=== PATIENT | female | born 1990 | race Caucasian/White ===

== ENCOUNTER 2020-03-05 11:44 | Outpatient (CLI) | payer BC, SELFPAY ==
[2020-03-05 12:22] LABS: Hematocrit 37.5 % (37.0-47.0); Hemoglobin 12.6 g/dL (12.0-15.0); Mean Corpuscular HGB Conc 33.6 g/dl (32-36); Mean Corpuscular Volume 89.3 fl (80-100); Mean Platelet Volume 10.3 fl (7.4-10.4); Platelet Count Result 206 k/mm3 (150-375); Red Cell Distribution Width 13.9 % (11.5-14.5); White Blood Count 10.4 K/mm3 (4.5-10.0)
[2020-03-07 13:03] LABS: Rapid Plasma Reagin Non-Reactive (NonReactive)
== END 2020-03-05 11:45 | disposition home or self-care (01) ==
PROVIDERS: PCP Family Medicine; Visit Provider Obstetrics & Gynecology Gynecology
DX: Z34.93 Encounter for supervision of normal pregnancy, unspecified, third trimester (principal); Z3A.00 Weeks of gestation of pregnancy not specified
CPT/HCPCS: 36415; 85027; 86592; 86850; 86900; 86901

== ENCOUNTER 2020-03-07 07:05 | Inpatient (IN) | payer BC, SELFPAY ==
[2020-03-07] VITALS (68 sets, daily range): BP systolic 92–127; BP diastolic 47–89; PULSE 50–98; RESP 10–18; TEMP 36.4–36.7; O2SAT 91–100; BMI 35.5
--- NOTE | 2020-03-07 07:23 | PM.IMHP ---
H&P: HPI History of Present Illness Date/Time: 03/07/20 07:23 Chief Complaint: scheduled csection Narrative: Shannan Pascual is a 30 year old female A1 at 39 2/7 wks here for repeat LTCS. Patient has been uncomplicated. labs: O+; RPR-; HBSAg -; HIV -; Rubella immune; GBS -. [facility] Past Medical History Medical History (Updated 03/07/20 @ 07:26 by Blanka Knight MD) Anxiety Surgical History Surgical History (Updated 03/07/20 @ 07:26 by Blanka Knight MD) History of S/P D&C (status post dilation and curettage) 2019 for SAb Family History Family History (Updated 02/11/20 @ 16:11 by Lilliana England RN) Grandparent Diabetes mellitus Mother Follicular lymphoma Other Family history of lung cancer Family history of malignant neoplasm of ovary Social History Social History Smoking status: Never smoker Alcohol intake: never Substance use: never Gender identity (if verbalized by the patient): Female Spiritual care concerns: No Meds Home Medications and Allergies Home Medications Medication Instructions Recorded Confirmed Type PNV cmb#95-ferrous fumarate-FA 1 tablet PO DAILY 02/11/20 02/11/20 History [] cholecalciferol (vitamin D3) 50 mcg PO DAILY 02/11/20 02/11/20 History [Vitamin D3] ferrous sulfate [Iron (ferrous 325 mg PO DAILY 02/11/20 02/11/20 History sulfate)] Allergies Allergy/AdvReac Type Severity Reaction Status Date / Time No Known Allergies Allergy Verified 09/03/19 08:06 Vital Signs Vital Signs - 24 hr 03/07/20 07:22 Pulse Rate 92 Blood Pressure 125/80 Exam Const: General: healthy appearing and comfortable Resp: Auscultation: clear to auscultation bilaterally Cardio: Rate: regular rate Rhythm: regular rhythm GI: GI Palp: Yes Other GI palpation findings present (gravid with FH 40 cm) : Speculum Exam - Cervix: Cervical os closed Assessment and Plan Assessment and plan (1) 39 weeks gestation of : Code(s): Z3A.39 - 39 weeks gestation of Status: Acute (2) History of : Code(s): Z98.891 - History of uterine scar from previous surgery Status: Inactive Assessment and Plan: declines trial of labor plan repeat csection
[2020-03-07] MEDS: LACTATED RINGERS 1,000 ML 125 ML IV CONT (07:37)
--- NOTE | 2020-03-07 08:06 | WPDANESEPPF ---
Anes - Initial Pre Proc Eval Procedure: Operation Date: 03/07/20 09:00 Proposed Procedures p Repeat Section - Blanka Knight MD Date/Time: 03/07/20 08:06 Surgeon: Blanka Knight MD Pre Op Diagnosis: Repeat C Section Patient Data Age: 30 Gender: F Height: 1.63 m Weight: 94 kg Last Vital Signs Pulse 92 03/07/20 07:22 BP 125/80 03/07/20 07:22 Allergies Allergy/AdvReac Type Severity Reaction Status Date / Time No Known Allergies Allergy Verified 09/03/19 08:06 Home Medications Medication Instructions Recorded Confirmed Type PNV cmb#95-ferrous fumarate-FA 1 tablet PO DAILY 02/11/20 02/11/20 History [] cholecalciferol (vitamin D3) 50 mcg PO DAILY 02/11/20 02/11/20 History [Vitamin D3] ferrous sulfate [Iron (ferrous 325 mg PO DAILY 02/11/20 02/11/20 History sulfate)] Patient hx anesthesia problems: none Family hx anesthesia problems: none PMFSH Past Medical History Medical History (Updated 03/07/20 @ 07:26 by Blanka Knight MD) Anxiety Surgical History Surgical History (Updated 03/07/20 @ 07:26 by Blanka Knight MD) History of S/P D&C (status post dilation and curettage) 2019 for SAb Family History Family History (Updated 02/11/20 @ 16:11 by Lilliana England RN) Grandparent Diabetes mellitus Mother Follicular lymphoma Other Family history of lung cancer Family history of malignant neoplasm of ovary Social History Social History Smoking status: Never smoker Alcohol intake: never Substance use: never Gender identity (if verbalized by the patient): Female Spiritual care concerns: No Anes - Eval Final PreProcedure Day of Procedure 03/07/20 08:06 Patient weight: obese Heart: regular rate and rhythm Lungs: clear to auscultation and normal air movement Airway: Mallampati scale class II Neurological: alert and oriented Last oral intake: >/= 8 hours ASA classification: II Emergent: no Anesthetic plan: proceed Anesthesia type and monitoring: regional spinal and standard monitoring Informed Consent: The patient's anesthetic plan and its attendant risks and benefits were discussed with the patient/family/POA. Questions were solicited and answers provided to the satisfaction of the patient/family/POA.
--- NOTE | 2020-03-07 10:16 | PM.PROC ---
Procedure Note - Detailed Date of procedure: 03/07/20 Pre-op diagnosis: Repeat C Section IUP 39 2/7 wk Post-op diagnosis: same Procedure performed: repeat LTCS Description of procedure: The patient was taken to the operating room and placed in the dorsal supine position with a leftward tilt. She was prepped and draped in the usual sterile fashion. Once anesthesia was deemed adequate a Pfannenstiel skin incision was made with a scalpel and carried down to underlying layer of fascia. Fascia was nicked in the midline. Fascial incision was extended laterally using Hernandez scissors. The edges of the fascia were grasped with Ochsner and tented and the fascia dissected off anteriorly and posteriorly using sharp dissection. Rectus muscles are in the midline. The peritoneum was tented with a peon and entered with Metzenbaum scissors. The bladder blade is placed. The bladder flap is noted to be below the lower uterine segment. The lower uterine segment is therefore incised with a scalpel and carried down to the under lying amniotic cavity. Membranes are ruptured with a pickup. Clear fluid is noted. The uterine incision is extended laterally using blunt traction. The 's head is brought up into the incision and delivered while the printer floor covering assistant applied fundal pressure. Nuchal cord x1 is reduced. The remainder of the infant was fully delivered. The cord is clamped and cut and infant handed to the waiting nursery nurse. The placenta is removed using manual traction. The uterus is cleared of all clots and debris. The uterus is exteriorized. The uterine incision is closed using 0 Monocryl in a running locked fashion and the same is used to imbricate. Good hemostasis is noted. The cul-de-sac is irrigated and the uterus returned to the abdomen. Gutters are irrigated. Incision was again inspected and noted to be hemostatic. The fascia is closed using 0 Vicryl in a running fashion. Subcutaneous tissues are irrigated and made hemostatic using Bovie cautery. Skin incision was closed using 4 0 Vicryl in a subcuticular fashion. Incision is covered with derma whitehead. Sponge, instrument, and needle counts are correct per the OR staff. Patient received antibiotics prior to skin incision. Anesthesia: spinal Surgeon: Blanka Knight MD Estimated blood loss (mL): 310 Drains: Yes (serrato) Packing: No Pathology: none sent Complications: No immediate complications Condition: stable Disposition: floor Findings: male 9#13oz nuchal cord x 1; 8/9; normal appearing tubes, ovaries, and uterus
--- NOTE | 2020-03-07 10:21 | PM.OBDSVD ---
DS: Admitting Diagnosis Admitting Diagnosis Admitting Diagnosis: IUP 39 2/7 wks previous LTCS DS: Discharge Diagnosis Discharge Diagnosis (1) delivery delivered: Code(s): O82 - Encounter for delivery without indication Status: Acute (2) 39 weeks gestation of : Code(s): Z3A.39 - 39 weeks gestation of Status: Acute (3) History of : Code(s): Z98.891 - History of uterine scar from previous surgery Status: Acute (4) Post-op bleeding: Status: Acute OB - DS: Summary OB Procedures : Ultrasound OB Procedures Intrapartum: low cervical, transverse OB Procedures: : None Peripartum Data Infant Delivery Method: Section Procedures: Procedures Operation Date: 03/07/20 09:00 <No data on this case meets the specified criteria> complications: hematoma, transfusion and other (return to OR for bleeding on Post op day 2) Status at Discharge Functional status at discharge: independent ambulation Overall status at discharge: patient is progressing back to baseline Time Spent with Patient Time attestation: Total time spent providing and/or coordinating discharge services: Discharge Plan Discharge Attending physician on discharge: Blanka Knight Discharging Clinician: Blanka Knight Anticipated Discharge Date/Time: 03/11/20 10:22 Patient Disposition: Home, Self-Care Activity: may shower, may drive after 2 weeks and pelvic rest Diet: regular Wound Care Instructions: incision open to air Discharge Instructions: Education: Mom and Baby Guide Given to: Mother Follow-Up: Call your delivering provider's office for an appointment to be seen in: 1 Week Mom and baby should come to the [facility] for the follow-up appointment. Appointment Date/Time: March 14, 2020 at 11:00 am What to expect at your follow-up visit: Physical Assessment Call [phone] if you are unable to keep your appointment time. BREAST CARE: * Wear a snug supportive bra. * For engorgement discomfort: Breast Feeding: * Apply warm moist washcloths * Express milk as needed to relieve engorgement * Wear loose clothing * For sore nipples: * Identify correct latch-on * Apply warm moist washcloths before and after nursing * Air dry nipples after nursing * May apply Lansinoh cream to nipples ABDOMINAL INCISION: * Allow incision to air dry * Do NOT use lotions for powders on your incision * When showering, allow soap and water to run over the incision, but do not wash incision PERINEAL CARE: * Until bleeding stops, use your hung bottle after urinating * Change your pad frequently throughout the day * You may take sitz baths several times a day (fill your bathtub with warm water and soak for 20 minutes.) Do NOT bathe in the water * No tub baths until seen by your physician - You may shower ACTIVITY: * Rest as much as possible. * Do not exercise or lift anything heavier than your baby (such as laundry or other children.) * Avoid stairs or driving as much as possible. * Do not put anything into the vagina. No douching, tampons, or sexual activity until seen by physician. NOTIFY PHYSICIAN IF YOU HAVE ANY QUESTIONS OR IF ANY OF THE FOLLOWING SYMPTOMS OCCUR: * If your incision becomes red, swollen, or more painful than what you have experienced in the hospital. * If your vaginal bleeding becomes foul smelling. * If your vaginal bleeding becomes more heavy than a period or if your bleeding changes from pink to bright red. However, you may pass an occasional walnut-sized clot once or twice for the first week . * If you experience a sharp, shooting pain in you calves. * If you discover a hard, reddened area on your breast or if you experience flu-like symptoms. DIET: * Eat regular, well-balanced meals. * Drink plenty of flu
[2020-03-07] MEDS: KETOROLAC 30 MG/ML VIAL (*BKC) IV PUSH (13:25)
--- NOTE | 2020-03-07 14:21 | PC.NURSE ---
3418 note; mother had infant at the breast when nurse came to bedside; baby initially fussy, then able to latch with nipple shield.Latch appeared appropriate, and mother reported comfortable breast feeding; baby had strong suck requiring some stimulation, and sucking improved as baby was getting more through the nipple shield. Mother reported seeing colostrum in the shield when she changed sides. Reviewed q2-3h and on demand feedings and reviewed how to assess for effective breast feeding, baby latched and nursing vigorously. mother reports hx of abundant milk production, pumping and bottle feeding because baby was using the nipple shield, and mother was not sure of her volume. She did have excellent milk production, giving stored milk for several months, and donating breast milk as well. Nurse encouraged mother to start pumping after each breast feeding after the third feeding with the nipple shield, and doing so until her milk was in, and then adjusting her pumping frequency as needed. Mother seemed attentive, yet hesitant to start pumping.
--- NOTE | 2020-03-07 14:48 | PC.NURSE ---
1430 note; Mother reports seeing milk in nipple shield, and hearing baby swallow with milk around his mouth. Nurse discussed again recommendation to start pumping after feedings, even 5-10 minutes, after baby's third feeding. Mother stated she is not comfortable starting pumping yet, and will not. Pump supplies left in her room. Pt reports having a Spectra pump at home with new attachments.
--- NOTE | 2020-03-07 15:13 | PC.NURSE ---
Patient transferred to post room #290 via stretcher. Support person present. Oriented to unit, room, information board, rooming in, admission packet and security measures. Patient verbalizes understanding.
[2020-03-07] MEDS: HYDROcodone/acetaminophen (*CRX) 5-325 MG TABLET 1 TAB PO ×2 (16:36→22:50)
[2020-03-07] MEDS: DEXTROSE 5%/0.45% SOD CHL 1,000 ML 125 ML IV CONT ×2 (16:37→22:47)
[2020-03-07] MEDS: DOCUSATE SODIUM 100 MG CAPSULE PO (16:37)
[2020-03-07] MEDS: ONDANSETRON INJ 4 MG/2 ML VIAL IV PUSH (16:42)
[2020-03-07] MEDS: IBUPROFEN 600 MG TABLET PO (20:45)
[2020-03-07] MEDS: SODIUM CHLORIDE 0.9% IV 500 ML IV CONT (21:43)
[2020-03-08] VITALS: BP 103/56; PULSE 98; RESP 16; TEMP 36.8; O2SAT 99
[2020-03-08] MEDS: IBUPROFEN 600 MG TABLET PO ×2 (03:52→13:46)
[2020-03-08 04:00] VITALS: BP 111/63; PULSE 88; RESP 16; TEMP 36.9; O2SAT 100
[2020-03-08 05:32] LABS: Basophils Percent Auto 0.2 % (0.2-1.2); Eosinophils Percent Auto 0.3 % (0-4.4); Hematocrit 21.5 % (37.0-47.0); Immature Granulocyte Absolute 0.09 K/mm3 (0.00-0.031); Immature Granulocyte Percent A 0.6 % (0-0.5); Lymphocytes Absolute Auto 1.66 K/mm3 (0.9-3.2); Lymphocytes Percent Auto 11.5 % (18.3-44.2); Mean Corpuscular HGB Conc 32.6 g/dl (32-36); Mean Corpuscular Hemoglobin 29.5 pg (26-34); Mean Corpuscular Volume 90.7 fl (80-100); Mean Platelet Volume 10.7 fl (7.4-10.4); Monocytes Absolute Auto 0.9 K/mm3 (0.1-0.6); Monocytes Percent Auto 6.4 % (2.6-8.5); Neutrophils Absolute Auto 11.6 K/mm3 (1.3-6.7); Platelet Count Result 187 k/mm3 (150-375); Red Blood Count 2.37 M/mm3 (4.2-5.4); Red Cell Distribution Width 14.2 % (11.5-14.5); White Blood Count 14.4 K/mm3 (4.5-10.0)
--- NOTE | 2020-03-08 07:51 | WPDANLDNPN2 ---
Anes-Prog Note L&D-Neuraxial Date/Time: 03/08/20 07:51 Neuraxial medications: intrathecal PF morphine Opiod-related complaints: none Patient feedback: Patient satisfied with post-operative pain management.
--- NOTE | 2020-03-08 07:51 | WPDANLDPN2 ---
Anes-Prog Note L&D Date/Time: 03/08/20 07:51 Comfortable throughout: section Neuraxial method: spinal Epidural/Spinal procedure site: clean & non-tender Neuro status: Neuro function grossly intact. Cardiovascular status: normal Respiratory status: normal Airway patency: baseline Mental status: baseline Post-Op hydration status: normal Vital Signs: Last Vital Signs Temp 36.9 C 03/08/20 04:00 Pulse 88 03/08/20 04:00 Resp 16 03/08/20 04:00 BP 111/63 03/08/20 04:00 Pulse Ox 100 03/08/20 04:00 Pain score (VAS): no complaints I/O: Intake & Output 03/07/20 03/07/20 03/08/20 15:59 23:59 07:59 Intake Total 2300 1500 Output Total 023 993 1823 Balance -410 1725 -800 Post-procedural complaints: none Patient feedback: Patient satisfied with anesthetic care.
--- NOTE | 2020-03-08 07:52 | P.PNOB_ITS ---
OB - PN: Subj Subjective Date/time seen: 03/08/20 07:52 Patient comments: pain well controlled and other (feeling much better this am) baby status: doing well OB - PN: Obj Data Labs CBC & Chem 7: 03/08/20 05:23 Labs: Laboratory Results - last 24 hr 03/08/20 05:23 WBC 14.4 H RBC 2.37 L Hgb 7.0 L D Hct 21.5 L MCV 90.7 MCH 29.5 MCHC 32.6 RDW 14.2 Plt Count 187 MPV 10.7 H Immature Gran % (Auto) 0.6 H Neut % (Auto) 81.0 H Lymph % (Auto) 11.5 L Prentiss % (Auto) 6.4 Eos % (Auto) 0.3 Baso % (Auto) 0.2 Lymph # (Auto) 1.66 Prentiss # (Auto) 0.9 H Eos # (Auto) 0.0 Baso # (Auto) 0.0 Abs Immat Gran (auto) 0.09 H Absolute Neuts (auto) 11.6 H Absolute Nucleated RBC 0.0 Nucleated RBC % 0.0 OB - PN A/P Plan day: 1 Comments: Had issues with catheter and fundus to patient right. Initially thought due to full bladder. Once catheter replaced, no sig urine output. Suspected bleeding however patient stable vital signs with no pulses >100 and BP stable throughout day and night. Lower limit of urine output and 2 500 cc bolus given with resulting 2200 cc out overnight. Suspect bleeding has stopped. Will keep in catheter and recheck H/H at noon. Continue close observation. Time Spent With Patient Time: Total time spent is greater than 50% in coordination of care (as documented) at patient's floor/unit and/or counseling patient: Exam Narrative: Exam Narrative: fundus firm, appropriate tenderness, to patient right inc c/d/i
[2020-03-08 08:45] VITALS: BP 119/61; PULSE 96; RESP 18; TEMP 37.3; O2SAT 98
[2020-03-08] MEDS: MULTIVIT/MIN/PREN/FOL AC/IRON TABLET 1 TAB PO (08:45)
[2020-03-08] MEDS: POLYSACCHARIDE IRON COMPLEX 150 MG CAPSULE PO ×2 (08:45→17:26)
[2020-03-08] MEDS: DOCUSATE SODIUM 100 MG CAPSULE PO ×2 (08:45→17:26)
[2020-03-08] MEDS: HYDROcodone/acetaminophen (*CRX) 5-325 MG TABLET 1 TAB PO ×3 (08:46→20:00)
[2020-03-08 12:00] VITALS: BP 115/62; PULSE 94; RESP 18; TEMP 37; O2SAT 100
[2020-03-08 12:56] LABS: Hematocrit 20.6 % (37.0-47.0)
[2020-03-08 16:00] VITALS: BP 116/57; PULSE 90; RESP 18; TEMP 36.9; O2SAT 99
[2020-03-08 20:00] VITALS: BP 117/69; PULSE 98; RESP 16; TEMP 37.2; O2SAT 99
[2020-03-09] VITALS (16 sets, daily range): BP systolic 110–128; BP diastolic 54–74; PULSE 71–122; RESP 16–20; TEMP 36.5–37.9; O2SAT 94–100
[2020-03-09] MEDS: HYDROcodone/acetaminophen (*CRX) 5-325 MG TABLET 1 TAB PO ×4 (05:07→23:56)
[2020-03-09 05:22] LABS: Hemoglobin 5.9 g/dL (12.0-15.0)
[2020-03-09 05:23] LABS: Hematocrit 18.2 % (37.0-47.0)
--- NOTE | 2020-03-09 06:05 | WPDANESEPP ---
Anes - Eval Pre Procedure Procedure: Exploratory laparoscopy Date/Time: 03/09/20 06:05 Surgeon: iveth Preop Diagnosis: post c section bleeding Pre Op Diagnosis: Repeat C Section Patient Data Age: 30 Gender: F Height: 1.63 m Weight: 94 kg Last Vital Signs Temp 36.8 C 03/09/20 00:00 Pulse 96 03/09/20 05:00 Resp 16 03/09/20 00:00 BP 122/63 03/09/20 05:00 Pulse Ox 100 03/09/20 05:00 Allergies Allergy/AdvReac Type Severity Reaction Status Date / Time No Known Allergies Allergy Verified 09/03/19 08:06 Home Medications Medication Instructions Recorded Confirmed Type PNV cmb#95-ferrous fumarate-FA 1 tablet PO DAILY 02/11/20 02/11/20 History [] cholecalciferol (vitamin D3) 50 mcg PO DAILY 02/11/20 02/11/20 History [Vitamin D3] ferrous sulfate [Iron (ferrous 325 mg PO DAILY 02/11/20 02/11/20 History sulfate)] Laboratory Tests 03/08/20 03/09/20 12:45 05:03 Hgb 7.0 g/dL L g/dL 5.9 g/dL L* g/dL (12.0-15.0) (12.0-15.0) Hct 20.6 % L* % 18.2 % L* % (37.0-47.0) (37.0-47.0) Patient hx anesthesia problems: none Family hx anesthesia problems: none [facility] Past Medical History Medical History (Updated 03/07/20 @ 10:22 by Blanka Knight MD) Anxiety Surgical History Surgical History (Updated 03/07/20 @ 10:22 by Blanka Knight MD) History of S/P D&C (status post dilation and curettage) 2019 for SAb Family History Family History (Updated 02/11/20 @ 16:11 by Lilliana England RN) Grandparent Diabetes mellitus Mother Follicular lymphoma Other Family history of lung cancer Family history of malignant neoplasm of ovary Social History Social History Smoking status: Never smoker Alcohol intake: never Substance use: never Gender identity (if verbalized by the patient): Female Spiritual care concerns: No Exam Day of Procedure 03/09/20 06:05
--- NOTE | 2020-03-09 06:23 | P.PNOB_ITS ---
OB - PN: Subj Subjective Date/time seen: 03/09/20 06:23 Patient comments: no complaints, pain well controlled and other (ambulating without dizziness) [place] baby status: doing well Narrative: Patient states feels good OB - PN: Obj Data Labs CBC & Chem 7: 03/09/20 05:03 Labs: Laboratory Results - last 24 hr 03/08/20 03/09/20 12:45 05:03 Hgb 7.0 L 5.9 L* Hct 20.6 L* 18.2 L* OB - PN A/P Assessment and Plan (1) Post-op bleeding: Status: Acute Assessment and Plan: Patient stable vitals but H/H dropped from 7 to 5.9. Discussed options with couple. Recommend 2 units PRBC and return to OR to evacuate blood and evaluate for possible continued internal bleeding. Reviewed additional recovery in hospital and risks of surgery. Patient agrees. Proceed with emergent exploratory laparotomy when OR team ready. (2) delivery delivered: Code(s): O82 - Encounter for delivery without indication Status: Acute Plan day: 2 Time Spent With Patient Time: Total time spent is greater than 50% in coordination of care (as documented) at patient's floor/unit and/or counseling patient: Exam Narrative: Exam Narrative: fundus firm,nt, to Right side inc c/d/i
--- NOTE | 2020-03-09 06:44 | WPDANESEPPF ---
Anes - Initial Pre Proc Eval Procedure: Operation Date: 03/07/20 09:00 Proposed Procedures p Repeat Section - Blanka Knight MD Operation Date: 03/09/20 07:00 Proposed Procedures p EXPLORATORY LAPAROTOMY - Blanka Knight MD Date/Time: 03/09/20 06:44 Surgeon: Blanka Knight MD Pre Op Diagnosis: Repeat C Section Patient Data Age: 30 Gender: F Height: 1.63 m Weight: 94 kg Last Vital Signs Temp 36.8 C 03/09/20 00:00 Pulse 96 03/09/20 05:00 Resp 16 03/09/20 00:00 BP 122/63 03/09/20 05:00 Pulse Ox 100 03/09/20 05:00 Allergies Allergy/AdvReac Type Severity Reaction Status Date / Time No Known Allergies Allergy Verified 09/03/19 08:06 Home Medications Medication Instructions Recorded Confirmed Type PNV cmb#95-ferrous fumarate-FA 1 tablet PO DAILY 02/11/20 02/11/20 History [] cholecalciferol (vitamin D3) 50 mcg PO DAILY 02/11/20 02/11/20 History [Vitamin D3] ferrous sulfate [Iron (ferrous 325 mg PO DAILY 02/11/20 02/11/20 History sulfate)] Laboratory Tests 03/08/20 03/09/20 12:45 05:03 Hgb 7.0 g/dL L g/dL 5.9 g/dL L* g/dL (12.0-15.0) (12.0-15.0) Hct 20.6 % L* % 18.2 % L* % (37.0-47.0) (37.0-47.0) Patient hx anesthesia problems: none Family hx anesthesia problems: none [facility] Past Medical History Medical History (Updated 03/09/20 @ 06:25 by Blanka Knight MD) Anxiety Surgical History Surgical History (Updated 03/07/20 @ 10:22 by Blanka Knight MD) History of S/P D&C (status post dilation and curettage) 2019 for SAb Family History Family History (Updated 02/11/20 @ 16:11 by Lilliana England RN) Grandparent Diabetes mellitus Mother Follicular lymphoma Other Family history of lung cancer Family history of malignant neoplasm of ovary Social History Social History Smoking status: Never smoker Alcohol intake: never Substance use: never Gender identity (if verbalized by the patient): Female Spiritual care concerns: No Anes - Eval Final PreProcedure Day of Procedure 03/09/20 06:44 Patient weight: obese Heart: regular rate and rhythm Lungs: clear to auscultation and normal air movement Airway: Mallampati scale class II Neurological: alert and oriented Last oral intake: >/= 8 hours ASA classification: II Emergent: yes Anesthetic plan: proceed Anesthesia type and monitoring: general ETT Informed Consent: The patient's anesthetic plan and its attendant risks and benefits were discussed with the patient/family/POA. Questions were solicited and answers provided to the satisfaction of the patient/family/POA.
[2020-03-09] MEDS: ceFAZolin SODIUM 1 GM VIAL 2 GM IV PUSH (07:16)
--- NOTE | 2020-03-09 07:31 | SUR.OPER ---
Dr Paul in OR consult [id number]
--- NOTE | 2020-03-09 07:54 | PM.PROC ---
Procedure Note - Detailed Date of procedure: 03/09/20 Pre-op diagnosis: Repeat C Section Post-op diagnosis: other (Postop bleeding) Procedure performed: Intraoperative consultation Description of procedure: This patient was taken to the operating room for postoperative bleeding after repeat . A Urology consultation was called intraoperatively due to bleeding adjacent to the bladder. When I presented the operating room Dr. Knight head had significant control of the bleeding that appeared to be from adjacent to the cervix. There is hematoma adjacent to the bladder however the patient's bladder did not appear to be injured and urine was clear. I assisted with control hemostasis. We elected not to perform bladder filling or other manipulation of the urinary tract as a injury did not appear evident. The case was turned over to Dr. Knight for closure Anesthesia: GETA Surgeon: Deann Paul MD Drains: No Packing: No Pathology: none sent Complications: No immediate complications Condition: stable Disposition: PACU
--- NOTE | 2020-03-09 08:01 | PM.PROC ---
Procedure Note - Detailed Date of procedure: 03/09/20 Pre-op diagnosis: Repeat C Section post op day 2 post op bleeding Post-op diagnosis: same Procedure performed: exploratory laparotomy Description of procedure: The patient is taken to the operating room and placed under general anesthesia. The glue was removed and the patient is prepped and draped in usual sterile fashion. The Pfannenstiel skin incision sutures are removed in the skin and in the fascia. The pelvis is explored and no obvious bleeding is noted. The bladder is firm and appears to have a hematoma within. Dr. Gerber is requested to perform intraoperative consultation. While awaiting his arrival. The peritoneum over the bladder is able to be opened in the left lower angle. [id number] of clots are removed. No active bleeding is noted in this space upon entering. During removal of the clot, bleeding was caused at the left angle of the uterine incision and at the left angle of the bladder flap. The broad ligament was opened during this process. Sutures of 0 Monocryl in rkytbg-nw-awlev fashion were placed at the bleeding on the uterine incision as well as the superficial bladder flap. The posterior surface of the broad ligament at the juncture with the uterus had minimal bleeding and additional suture of 0 Monocryl vxbhac-bl-[id number] was placed here as well. Dr. Gerber in to the operating room and evaluated the pelvis. No bladder defects were noted. With his assistance the pelvis was fully explored and the above stated sutures placed as needed for hemostasis. Surgicel was placed in the vesicouterine space and Hemoderm was placed over the surface of the lower uterine segment and bladder flap. Hemo derm was also placed over the posterior surface of the broad ligament suspension instruments are removed and uterus is returned to the abdomen. The fascia was closed using 0 Vicryl in a running fashion. Subcutaneous tissues are irrigated and made hemostatic using Bovie cautery. Skin incision is closed using 4 0 Vicryl in a subcuticular fashion. Dermaflex was placed over the incision. Patient was given Ancef prior to incision 2 g. Sponge, instrument, and needle counts are correct per the OR staff. Patient is awakened from anesthesia and taken to recovery in stable condition. She did have 2units of packed red blood cells started infusing during the operation as previously discussed with the patient. Vitals remained stable throughout the operation. Anesthesia: GETA Surgeon: MD Humberto Leon Estimated blood loss (mL): 25 (appox. 750 cc blood clot evacuated) Drains: Yes (serrato) Packing: No Pathology: none sent Complications: No immediate complications Condition: stable Disposition: PACU Findings: hematoma between bladder and lower uterine segment and into left broad ligament no obvious active bleeding
--- NOTE | 2020-03-09 08:15 | SUR.OPER ---
TOTAL U/A 325ML. OR EBL 25ML.
--- NOTE | 2020-03-09 08:19 | SUR.OPER ---
1 UNIT PRBC INFUSED PER ANESTHESIA. #2 UNIT HUNG AND INFUSING IN OR TO PACU.
[2020-03-09] MEDS: SODIUM CHLORIDE 0.9% IV 1,000 ML 100 ML IV CONT (08:26)
[2020-03-09] MEDS: LACTATED RINGERS 1,000 ML 30 ML IV CONT (08:26)
[2020-03-09] MEDS: HYDROmorphone HCL INJ (*CRX) 1 MG/ML SYR 0.25 MG IV PUSH ×4 (08:30→08:53)
[2020-03-09] MEDS: KETOROLAC 30 MG/ML VIAL (*BKC) IV PUSH (09:44)
--- NOTE | 2020-03-09 11:57 | PC.NURSE ---
Consulted with patient, reviewed feeding cues, frequencies, duration of feedings, feeding elimination flow sheet, and signs of adequate intake. Mom declines wanting to have a feeding assessed at this point. States she had a large milk supply and forceful let down with her first child and does not want to start pumping though she is using a nipple shield. Mother verbalizes she is able to independently latch infant with appropriate positioning/alignment. She denies any nipple discomfort, is feeding as required and waking infant to feed if needed.Instructed mother to call out for RN assistance if she is unable to latch infant for feeding or she has discomfort with nursing. Instructed feeding should be initiated three hours from start of last feeding or if feeding cues are noted before. Mother voiced understanding of information shared.
[2020-03-09] MEDS: DOCUSATE SODIUM 100 MG CAPSULE PO ×2 (14:11→23:57)
[2020-03-09] MEDS: POLYSACCHARIDE IRON COMPLEX 150 MG CAPSULE PO ×2 (14:11→23:56)
[2020-03-09] MEDS: MULTIVIT/MIN/PREN/FOL AC/IRON TABLET 1 TAB PO (14:11)
[2020-03-10] VITALS: BP 110/66; PULSE 87; RESP 16; TEMP 36.7; O2SAT 98
[2020-03-10 04:00] VITALS: BP 127/78; PULSE 86; RESP 16; TEMP 36.9; O2SAT 99
[2020-03-10 04:29] LABS: Hematocrit 23.7 % (37.0-47.0); Mean Corpuscular HGB Conc 33.8 g/dl (32-36); Mean Corpuscular Volume 88.8 fl (80-100); Mean Platelet Volume 10.7 fl (7.4-10.4); Platelet Count Result 142 k/mm3 (150-375); Red Blood Count 2.67 M/mm3 (4.2-5.4); Red Cell Distribution Width 16.3 % (11.5-14.5)
--- NOTE | 2020-03-10 07:42 | PM.OBPNVD ---
OB - PN: Subj Subjective Date/time seen: 03/10/20 07:42 Patient comments: no complaints and pain well controlled baby status: doing well and nursing well OB - PN: Obj Data Labs CBC & Chem 7: 03/10/20 04:21 Labs: Laboratory Results - last 24 hr 03/09/20 03/10/20 06:15 04:21 WBC 12.0 H RBC 2.67 L Hgb 8.0 L Hct 23.7 L MCV 88.8 MCH 30.0 MCHC 33.8 RDW 16.3 H Plt Count 142 L MPV 10.7 H Blood Type O Positive Antibody Screen Negative Crossmatch See Detail OB - PN A/P Plan day: 3 Comments: post op day 1 from return to OR s/p 2 units PRBCs Doing well. MK serrato. anticipate dc in am tomorrow Time Spent With Patient Time: Total time spent is greater than 50% in coordination of care (as documented) at patient's floor/unit and/or counseling patient: Exam Narrative: Exam Narrative: fundus firm nt, midline at U inc c/d/i
[2020-03-10] MEDS: HYDROcodone/acetaminophen (*CRX) 5-325 MG TABLET 1 TAB PO ×3 (07:58→16:43)
[2020-03-10] MEDS: POLYSACCHARIDE IRON COMPLEX 150 MG CAPSULE PO ×2 (07:58→16:43)
[2020-03-10] MEDS: MULTIVIT/MIN/PREN/FOL AC/IRON TABLET 1 TAB PO (07:58)
[2020-03-10] MEDS: DOCUSATE SODIUM 100 MG CAPSULE PO ×2 (07:58→16:44)
[2020-03-10] MEDS: IBUPROFEN 600 MG TABLET PO ×2 (07:59→16:43)
[2020-03-10 08:45] VITALS: BP 129/63; PULSE 95; RESP 18; TEMP 37; O2SAT 98
--- NOTE | 2020-03-10 08:54 | WPDUROPN2 ---
Progress Note: A&P Assessment and Plan (1) Post-op bleeding: Status: Acute Assessment and Plan: Urine is clear, catheter removed, patient will void independently. No further evaluation is needed. Subjective Subjective Date/Time Seen: 03/10/20 08:54 POD#1 Exploratory Laparotomy Review of Systems Cardiovascular: Cardiovascular: Denies chest pain Respiratory: Respiratory: Reports no additional respiratory complaints Gastrointestinal: Gastrointestinal: Reports abdominal pain, Denies nausea and Denies vomiting Genitourinary: Genitourinary: Denies hematuria and Denies flank pain Exam Resp: Effort & Inspection: normal respiratory effort Cardio: Rate: regular rate GI: GI Palp: Yes abdominal tenderness, Yes Soft to palpation and Yes Tenderness to palpation present (GI) (at incision only) : General: Yes no CVA tenderness Extrem: General: edema bilateral Objective Data Vital Signs Vital Signs: Vital Signs - 24 hr 03/09/20 08:55 03/09/20 09:10 03/09/20 09:40 Temperature 99.1 F 98.9 F Pulse Rate 87 81 86 Respiratory Rate 20 20 16 Blood Pressure 124/68 127/72 121/71 Pulse Oximetry 98 97 96 03/09/20 09:45 03/09/20 10:00 03/09/20 10:30 Temperature 99.9 F H Pulse Rate 81 71 84 Respiratory Rate 16 16 16 Blood Pressure 116/72 115/63 120/66 Pulse Oximetry 94 94 96 03/09/20 11:00 03/09/20 12:00 03/09/20 13:00 Temperature 100.3 F H Pulse Rate 82 108 H 100 Respiratory Rate 16 16 16 Blood Pressure 110/57 L 121/74 118/68 Pulse Oximetry 96 97 97 03/09/20 18:01 03/09/20 20:00 03/10/20 00:00 Temperature 98.5 F 98.5 F 98.0 F Pulse Rate 104 H 87 Respiratory Rate 16 16 Blood Pressure 125/66 110/66 Pulse Oximetry 99 98 03/10/20 04:00 Temperature 98.4 F Pulse Rate 86 Respiratory Rate 16 Blood Pressure 127/78 Pulse Oximetry 99 Intake/Output Intake/Output: Intake & Output 03/07/20 03/08/20 03/09/20 03/10/20 23:59 23:59 23:59 23:59 Intake Total 2300 3340 2700 800 Output Total 985 4950 2860 1000 Balance 1315 -1610 -160 -200 Meds/Results Medications: Active Medications Generic Name Dose Route Start Last Admin Trade Name Freq PRN Reason Stop Dose Admin Acetaminophen 650 mg 03/07/20 12:56 Acetaminophen 325 Mg Tablet PO Q6H PRN Mild Pain (1-3) Hydrocodone Bitart/Acetaminophen 1 tab 03/07/20 12:56 03/10/20 07:58 Hydrocodone/Acetaminophen (*Crx) 5-325 Mg Tablet PO 1 tab Q3H PRN Administration Moderate Pain (4-6) Hydrocodone Bitart/Acetaminophen 1 tab 03/07/20 12:56 Hydrocodone/Acetaminophen (*Crx) 10-325 Mg Tablet PO Q3H PRN Pain Rated 7-10 Bisacodyl 10 mg 03/07/20 12:56 Bisacodyl 10 Mg Suppository RECTAL ONCE PRN Constipation Docusate Sodium 100 mg 03/07/20 17:00 03/10/20 07:58 Docusate Sodium 100 Mg Capsule PO 100 mg BID KATHLEEN Administration Emollient Ointment 1 applic 03/07/20 12:56 Lanolin (Lansinoh) 7.5 Gm Cream TOPICAL PRN PRN Sore Nipples Ibuprofen 600 mg 03/07/20 12:56 03/10/20 07:59 Ibuprofen 600 Mg Tablet PO 600 mg Q6H PRN Administration Cramping Ketorolac Tromethamine 30 mg 03/07/20 12:56 03/09/20 09:44 Ketorolac 30 Mg/Ml Vial (*Bkc) IV PUSH 30 mg Q6H PRN Administration Pain Rated 4-6 Naloxone HCl 0.1 mg 03/07/20 12:56 Naloxone Hcl 0.4 Mg/Ml Vial IV PUSH Q2M PRN Opiate Reversal Ondansetron HCl 4 mg 03/07/20 12:56 03/07/20 16:42 Ondansetron Inj 4 Mg/2 Ml Vial IV PUSH 4 mg Q6H PRN Administration Nausea Polysaccharide Iron Complex 150 mg 03/07/20 17:00 03/10/20 07:58 Polysaccharide Iron Complex 150 Mg Capsule PO 150 mg BIDWM KATHLEEN Administration Vit/Calcium/Iron/Folic Ac 1 tab 03/08/20 09:00 03/10/20 07:58 Multivit/Min/Pren/Fol Ac/Iron Tablet PO 1 tab DAILY KATHLEEN Administration Simethicone 80 mg 03/07/20 12:56 Simethicone 80 Mg Tab.Chew PO Q2H PRN Gas Z
--- NOTE | 2020-03-10 09:33 | WPDANESPN ---
Anes - Prog Note Post-Op Date/Time: 03/10/20 09:33 Cardiovascular status: normal Respiratory status: normal Airway patency: baseline Mental status: baseline Post-Op hydration status: normal Vital Signs: Last Vital Signs Temp 36.9 C 03/10/20 04:00 Pulse 86 03/10/20 04:00 Resp 16 03/10/20 04:00 BP 127/78 03/10/20 04:00 Pulse Ox 99 03/10/20 04:00 Pain Score (VAS): 0 I/O: Intake & Output 03/09/20 03/10/20 03/10/20 23:59 07:59 15:59 Intake Total 1300 800 Output Total 1850 1650 Balance -550 -850 Laboratory Tests 03/10/20 04:21 03/10/20 04:21 WBC 12.0 H RBC 2.67 L Hgb 8.0 L Hct 23.7 L MCV 88.8 MCH 30.0 MCHC 33.8 RDW 16.3 H Plt Count 142 L MPV 10.7 H Post-procedural complaints: none Patient Feedback: Patient satisfied with anesthetic care.
--- NOTE | 2020-03-10 10:29 | PC.NURSE ---
Consulted with patient. Mom denies having any questions and declines the need to have a assessed. Mom states baby has moved to yellow seedy stools. Appropriate amount of sessions, voids and stools noted on output worksheet. Mom encouraged to call out for questions and number reviewed for once patient is discharged.
[2020-03-10 19:50] VITALS: BP 140/82; PULSE 91; RESP 18; TEMP 37.1; O2SAT 100
[2020-03-11] MEDS: HYDROcodone/acetaminophen (*CRX) 5-325 MG TABLET 1 TAB PO ×2 (01:46→10:27)
[2020-03-11] MEDS: IBUPROFEN 600 MG TABLET PO ×2 (01:46→10:27)
[2020-03-11 08:30] VITALS: BP 120/74; PULSE 84; RESP 18; TEMP 36.9
[2020-03-11] MEDS: DOCUSATE SODIUM 100 MG CAPSULE PO (10:26)
[2020-03-11] MEDS: POLYSACCHARIDE IRON COMPLEX 150 MG CAPSULE PO (10:26)
[2020-03-11] MEDS: MULTIVIT/MIN/PREN/FOL AC/IRON TABLET 1 TAB PO (10:30)
[2020-03-14 10:39] VITALS: BP 128/75; PULSE 85; RESP 20; TEMP 37.2; O2SAT 99
== END 2020-03-11 12:49 | disposition home or self-care (01) | DRG 787 ==
LOC: ANHLDR 10:24 → ANHOB2 12:44
PROVIDERS: Admitting Provider Obstetrics & Gynecology Gynecology; PCP Family Medicine; Visit Provider Obstetrics & Gynecology Gynecology
PROC: 10D00Z1 Extraction of Products of Conception, Low, Open Approach (ICD-10-PCS; CPT 59514; principal; 2020-03-07 09:00)
PROC: 0UT94ZZ Resection of Uterus, Percutaneous Endoscopic Approach (ICD-10-PCS; principal; 2020-03-09 07:00)
DX: O34.211 Maternal care for low transverse scar from previous cesarean delivery (principal); O72.1 Other immediate postpartum hemorrhage; O69.1XX0 Labor and delivery complicated by cord around neck, with compression, not applicable or unspecified; Z3A.39 39 weeks gestation of pregnancy; Z37.0 Single live birth
CPT/HCPCS: 36415; 36430; 85014; 85018; 85025; 85027; 86850; 86900; 86901; 86923; A9270; J0131; J0330; J0690; J1100; J1170; J1885; J2250; J2274; J2370; J2405; J2590; J2704; J7030; J7040; J7120; P9016

== ENCOUNTER 2022-08-13 16:51 | Outpatient (CLI) | payer BC, SELFPAY ==
[2022-08-13 17:07] LABS: Basophils Percent Auto 0.3 % (0.2-1.2); Eosinophils Absolute Auto 0.1 K/mm3 (0-0.3); Eosinophils Percent Auto 1.3 % (0-4.4); Hematocrit 34.4 % (37.0-47.0); Hemoglobin 10.9 g/dL (12.0-15.0); Immature Granulocyte Absolute 0.04 K/mm3 (0.00-0.031); Immature Granulocyte Percent A 0.4 % (0-0.5); Lymphocytes Absolute Auto 1.81 K/mm3 (0.9-3.2); Lymphocytes Percent Auto 17.7 % (18.3-44.2); Mean Corpuscular HGB Conc 31.7 g/dl (32-36); Mean Corpuscular Hemoglobin 28.2 pg (26-34); Mean Corpuscular Volume 89.1 fl (80-100); Mean Platelet Volume 10.3 fl (7.4-10.4); Monocytes Absolute Auto 0.8 K/mm3 (0.1-0.6); Neutrophils Absolute Auto 7.4 K/mm3 (1.3-6.7); Neutrophils Percent Auto 72.3 % (45.5-73.1); Platelet Count Result 226 k/mm3 (150-375); Red Blood Count 3.86 M/mm3 (4.2-5.4); Red Cell Distribution Width 13.8 % (11.5-14.5); White Blood Count 10.2 K/mm3 (4.5-10.0)
[2022-08-14 11:29] LABS: Rapid Plasma Reagin Non-Reactive (NonReactive)
== END 2022-08-13 16:52 | disposition home or self-care (01) ==
LOC: ANHLAB 16:53
PROVIDERS: PCP Family Medicine; Visit Provider Obstetrics & Gynecology Gynecology
DX: Z34.93 Encounter for supervision of normal pregnancy, unspecified, third trimester (principal); Z3A.00 Weeks of gestation of pregnancy not specified
CPT/HCPCS: 36415; 85025; 86592; 86850; 86900; 86901

== ENCOUNTER 2022-08-14 05:38 | Inpatient (IN) | payer BC, SELFPAY ==
--- NOTE | 2022-08-13 14:23 | P.PNAN_ITS ---
Anes - Initial Pre Proc Eval Procedure: Operation Date: 08/14/22 07:30 Proposed Procedures p Repeat Section - Blanka Knight MD Date/Time: 08/13/22 14:23 Surgeon: Blanka Knight MD Pre Op Diagnosis: C/S Patient Data Age: 32 Gender: F Height: Weight: Allergies Allergy/AdvReac Type Severity Reaction Status Date / Time No Known Allergies Allergy Verified 09/15/21 07:34 Home Medications Medication Instructions Recorded Confirmed Type cholecalciferol (vitamin D3) 50 50 mcg PO DAILY 02/11/20 08/14/22 History mcg (2,000 unit) tablet (Vitamin D3) prenat.vits,laura,[id number] 1 tablet PO DAILY 07/23/22 07/23/22 History Patient hx anesthesia problems: none Family hx anesthesia problems: none Results Review: All pre-operative results and documents have been reviewed as part of the pre- operative evaluation. [facility], LAT[facility] Past Medical History Medical History Anxiety BMI 30.0-30.9,adult Surgical History Surgical History History of S/P D&C (status post dilation and curettage) 2019 for SAb Family History Family History Grandparent Diabetes mellitus Mother Follicular lymphoma Father No problems noted. Sibling No problems noted. Other Family history of lung cancer Family history of malignant neoplasm of ovary Social History Social History Smoking status: Never smoker Second hand tobacco smoke exposure: No Alcohol intake: current Substance use: never Substance use type: does not use Lack of Transportation: No Lack of Food: Never True Current Housing: I Have Housing Concerned About Future Housing: No Difficulty Paying Gas/Electric Bills: No Difficulty Paying for Meds: No Currently Unemployed: No Education: Master's Degree or Higher Difficulty w/ Childcare or Family Care: No Living arrangements: with family Occupation/Education: occupation Additional occupation/education comments: [employer] Gender identity (if verbalized by the patient): Female Spiritual care concerns: No Anes - Eval Final PreProcedure Day of Procedure 08/13/22 14:23 Patient weight: obese Heart: regular rate and rhythm Lungs: clear to auscultation and normal air movement Airway: Mallampati scale class II Neurological: alert and oriented Last oral intake: >/= 8 hours ASA classification: II Emergent: yes Anesthetic plan: proceed Anesthesia type and monitoring: regional spinal Results Review: All pre-operative results and documents have been reviewed as part of the pre- operative evaluation. Informed Consent: The patient's anesthetic plan and its attendant risks and benefits were discussed with the patient/family/POA. Questions were solicited and answers provided to the satisfaction of the patient/family/POA.
[2022-08-14] VITALS (68 sets, daily range): BP systolic 95–137; BP diastolic 47–108; PULSE 55–105; RESP 14–19; TEMP 36.3–36.7; O2SAT 82–100; BMI 35.9
--- NOTE | 2022-08-14 05:54 | LDADM ---
This patient, Shannan Pascual, was admitted to Labor/Delivery/Recovery 119 on 08/14/22 at 05:38. Plans for labor, pain management and were discussed with patient. Patient/family oriented to hospital policies and general routines including ID bracelet, bed and alarms, visiting hours, pain management, procedures, bathroom and other care routines, personal items, smoking policy, room service/diet and guest tray routines, security routines, and visiting hours. Patient/Family are encouraged to report perceived risks to care and to ask questions if they do not understand what they are told or what they should do. See OBIX for further documentation.
--- NOTE | 2022-08-14 07:21 | WPDHPUPDATE1 ---
History and Physical Update Update Date/Time: 08/14/22 07:21 History and Physical has been reviewed, including an updated exam of the patient. There are NO changes in the patient's condition. Risks, benefits, and alternatives have been discussed and questions answered. Patient agrees to proceed with procedure.
--- NOTE | 2022-08-14 07:21 | PM.IMHP ---
H&P: HPI History of Present Illness Date/Time: 08/14/22 07:21 Chief Complaint: Repeat section Narrative: The patient is a 32 year old 4 para 2 aborta 1 at 39 weeks being admitted for repeat section. The patient's has been uncomplicated. labs O positive, rubella immune, RPR negative, hepatitis-B surface antigen negative, HIV negative, group B strep negative. Review of Systems Review of Systems: good movement with rare contractions All systems reviewed & are unremarkable except as noted in HPI and below ( Above) [facility] Past Medical History Medical History (Updated 09/15/21 @ 12:17 by Li Leon PAC) Anxiety BMI 30.0-30.9,adult Surgical History Surgical History (Updated 08/14/22 @ 07:23 by Blanka Knight MD) History of x2 S/P D&C (status post dilation and curettage) 2019 for SAb Family History Family History Grandparent Diabetes mellitus Mother Follicular lymphoma Father No problems noted. Sibling No problems noted. Other Family history of lung cancer Family history of malignant neoplasm of ovary Social History Social History Smoking status: Never smoker Second hand tobacco smoke exposure: No Alcohol intake: current Substance use: never Substance use type: does not use Lack of Transportation: No Lack of Food: Never True Current Housing: I Have Housing Concerned About Future Housing: No Difficulty Paying Gas/Electric Bills: No Difficulty Paying for Meds: No Currently Unemployed: No Education: Master's Degree or Higher Difficulty w/ Childcare or Family Care: No Living arrangements: with family Occupation/Education: occupation Additional occupation/education comments: [employer] Gender identity (if verbalized by the patient): Female Spiritual care concerns: No Meds Home Medications and Allergies Home Medications Medication Instructions Recorded Confirmed Type cholecalciferol (vitamin D3) 50 50 mcg PO DAILY 02/11/20 08/14/22 History mcg (2,000 unit) tablet (Vitamin D3) prenat.vits,laura,[id number] 1 tablet PO DAILY 07/23/22 07/23/22 History Allergies Allergy/AdvReac Type Severity Reaction Status Date / Time No Known Allergies Allergy Verified 09/15/21 07:34 Vital Signs Vital Signs - 24 hr 08/14/22 05:54 08/14/22 05:58 08/14/22 06:01 Pulse Rate 79 84 Blood Pressure 115/70 109/74 Pulse Oximetry 98 Oxygen Delivery Room Air 08/14/22 06:03 08/14/22 06:08 08/14/22 06:11 Pulse Rate Blood Pressure Pulse Oximetry 98 97 96 Oxygen Delivery 08/14/22 06:16 08/14/22 06:31 Pulse Rate 92 84 Blood Pressure 122/79 106/75 Pulse Oximetry 99 Oxygen Delivery Exam Const: General: healthy appearing and alert Orientation/consciousness: patient oriented x3 Resp: Effort & Inspection: normal respiratory effort GI: GI Palp: Yes Soft to palpation, No Tenderness to palpation present (GI) and Yes Other GI palpation findings present ( fundal height 38cm) : External Female Exam: normal external appearance Speculum Exam - Vagina: normal appearance of the vagina and normal vaginal discharge Speculum Exam - Cervix: normal appearance of the cervix Bimanual exam- vagina & uterus: consistency normal Bimanual Exam- Adnexa, other: normal adnexae and No adnexal tenderness Neuro: General: patient oriented x3 Assessment and Plan Assessment and plan (1) 39 weeks gestation of : Code(s): Z3A.39 - 39 weeks gestation of Status: Acute (2) History of : Code(s): Z98.891 - History of uterine scar from previous surgery Status: Acute Assessment and Plan: plan to proceed with repeat section
[2022-08-14] MEDS: LACTATED RINGERS 1,000 ML 999 ML IV CONT (07:26)
[2022-08-14] MEDS: LACTATED RINGERS 1,000 ML 125 ML IV CONT ×3 (07:49→08:30)
[2022-08-14] MEDS: ceFAZolin 2 GM/D5W 50 ML 2 GM/50 ML BAG IVPB (07:53)
[2022-08-14] MEDS: KETOROLAC 30 MG/ML VIAL (*BKC) IV PUSH ×2 (08:40→15:15)
--- NOTE | 2022-08-14 08:42 | W.PM.PROC2 ---
Procedure Note - Detailed Date of Procedure 08/14/22 Pre-op Diagnosis Intrauterine at 39 weeks previous section x2 Post-op Diagnosis Same Procedure Performed repeat low-transverse section Surgeon Blanka Knight MD Anesthesia Spinal Findings female 8lb 1oz with Apgars of 9 and 9; normal-appearing tubes, ovaries, uterus Description of Procedure The patient is taken to the operating room and placed under anesthesia in the dorsal supine position with a leftward tilt. Once anesthesia was deemed adequate she was prepped and draped in usual sterile fashion. A Pfannenstiel skin incision was made with a scalpel through the prior incision and carried to the underlying fascia which was nicked in the midline. Fascial incision was extended laterally using Hernandez scissors. [facility] was used to tent the fascia which was then dissected off using sharp and blunt dissection. The peritoneum was entered during this process. The peritoneal incision is extended with blunt traction. The bladder blade is placed and the vesicouterine peritoneum was grasped with a Peon. The bladder flap was created using sharp and blunt dissection. The bladder blade is replaced and the lower uterine segment incised in a transverse fashion with the scalpel. The incision was extended laterally using blunt traction. The 's head was brought into the incision and delivered while the cataloging assistant applied fundal pressure. The infant was fully delivered and the cord clamped and cut. The is handed off to the nursery nurse. The placenta was removed using manual traction after cord gases and cord blood were drawn. The uterus is cleared of all clots and debris and exteriorized. The uterine incision was closed using 0 Monocryl in a running locked fashion with the same suture used to imbricate. Good hemostasis is noted. One aboahd-[id number] suture was required anterior to the bladder flap for hemostasis. The cul-de-sac is then irrigated and the uterus returned to the abdomen. The gutters are irrigated and the incision again inspected and noted to be hemostatic. The fascia was closed using 0 Vicryl in a running fashion. Subcutaneous tissues were irrigated made hemostatic using Bovie cautery. The skin incision was closed using 4-0 Vicryl in a subcuticular fashion. Dermaflex was placed over the incision. Sponge, needle, and instrument counts are correct per the OR staff. Patient is taken to recovery in stable condition. Estimated Blood Loss 335 Drains Yes ( Sawyer catheter) Packing No Pathology None sent Complications No immediate complications Condition Stable Disposition Floor
--- NOTE | 2022-08-14 08:45 | PM.OBDSVD ---
DS: Admitting Diagnosis Discharge Date 08/16/22 Admitting Diagnosis intrauterine at 39 weeks with previous x2 DS: Discharge Diagnosis Discharge Diagnosis (1) delivery delivered: Code(s): O82 - Encounter for delivery without indication Status: Acute (2) Post-op pain: Code(s): G89.18 - Other acute postprocedural pain Status: Acute OB - DS: Summary OB Procedures : Ultrasound OB Procedures Intrapartum: low cervical, transverse OB Procedures: : None Peripartum Data Delivery Method: Section Procedures: Procedures Operation Date: 08/14/22 07:30 <No data on this case meets the specified criteria> complications: none Status at Discharge Functional status at discharge: independent ambulation Overall status at discharge: patient is progressing back to baseline Time Spent with Patient Time attestation: Total time spent providing and/or coordinating discharge services: Discharge Plan Discharge Attending physician on discharge: Blanka Knight Discharging Clinician: Blanka Knight Anticipated Discharge Date/Time: 08/16/22 08:46 Patient Disposition: Home, Self-Care Activity: may shower, may drive after 2 weeks and pelvic rest Diet: regular Wound Care Instructions: incision open to air Patient Instructions: Antibiotic Form Stand Alone Forms: General Discharge Information Follow-up/Referrals: Blanka Knight MD [Physician] - 1 Week ( and 6 week) Discharge Medications: New hydrocodone-acetaminophen 5-325 mg tablet 1 tablet PO Q4H PRN (Reason: pain) Qty: 30 0RF norethindrone (contraceptive) 0.35 mg tablet 0.35 mg PO DAILY Qty: 84 3RF Continued cholecalciferol (vitamin D3) [Vitamin D3] 50 mcg (2,000 unit) Tablet 50 mcg PO DAILY #2 Tablet 1 tablet PO DAILY Date of admission: 08/14/22 05:38 Primary Care Provider: Kvng Fragoso Admitting Provider: Blanka Knight Attending physician on admission: Blanka Knight Condition: Stable
[2022-08-14] MEDS: OXYTOCIN 30 UNITS/NS 500 ML 30 UNITS/500 ML BAG 125 UNITS IV CONT (11:30)
--- NOTE | 2022-08-14 12:28 | OBPPTRN ---
1122 Patient transferred to post room #277 via stretcher. Support person present. Oriented to unit, room, information board, rooming in, admission packet and security measures. Patient verbalizes understanding.
[2022-08-14] MEDS: DEXTROSE 5%/0.45% SOD CHL 1,000 ML 125 ML IV CONT (15:35)
--- NOTE | 2022-08-14 16:26 | PC.NURSE ---
[id number] Introductions were made, then consulted with patient to assess needs related to . Mother led the conversation with her?plans to feed?her , her feeding history, the nonconventional plan with a nipple shield, and the?experience so far. Resources provided for inpatient and outpatient services with the mom/baby guide and name written on the white board. Mother voiced understanding of information and requested assistance. Mother states she pumped and fed with her first child and created an oversupply, so she desires not to initiate pumping. With her second she breastfed with a nipple shield and no pumping. She states she breastfed successfully with that plan and desires to feed this in that manner. We discussed the options and how to protect the milk supply, infant positioning with a tight tongue that has a frenulum almost to the tip of the tongue. The parents discuss the history with having a frenulectomy done for their first child. Reviewed positioning, deep latching watching for good nipple stretching within the nipple shield as it pertains to a good milk supply. Mother voiced understanding of the education, prefers to use a nipple shield without pumping at this time. A plan was made for the RN to assess needs tomorrow. Mother voiced feeding her on demand, when and how to call for assistance if there is pain with latching or infant doesn't wake to breastfeed with the nipple shield. Reported to the primary RN.
[2022-08-15 00:10] VITALS: BP 104/64; PULSE 67; RESP 16; TEMP 36.6; O2SAT 100
[2022-08-15 05:34] LABS: Basophils Percent Auto 0.3 % (0.2-1.2); Eosinophils Absolute Auto 0.1 K/mm3 (0-0.3); Eosinophils Percent Auto 1.4 % (0-4.4); Hematocrit 31.5 % (37.0-47.0); Hemoglobin 9.8 g/dL (12.0-15.0); Immature Granulocyte Absolute 0.05 K/mm3 (0.00-0.031); Immature Granulocyte Percent A 0.5 % (0-0.5); Lymphocytes Percent Auto 13.4 % (18.3-44.2); Mean Corpuscular HGB Conc 31.1 g/dl (32-36); Mean Corpuscular Hemoglobin 27.8 pg (26-34); Mean Corpuscular Volume 89.2 fl (80-100); Mean Platelet Volume 10.1 fl (7.4-10.4); Monocytes Absolute Auto 0.6 K/mm3 (0.1-0.6); Monocytes Percent Auto 6.5 % (2.6-8.5); Neutrophils Absolute Auto 7.5 K/mm3 (1.3-6.7); Neutrophils Percent Auto 77.9 % (45.5-73.1); Platelet Count Result 188 k/mm3 (150-375); Red Blood Count 3.53 M/mm3 (4.2-5.4); Red Cell Distribution Width 13.7 % (11.5-14.5); White Blood Count 9.7 K/mm3 (4.5-10.0)
[2022-08-15] MEDS: POLYSACCHARIDE IRON COMPLEX 150 MG CAPSULE PO ×2 (07:12→16:04)
[2022-08-15] MEDS: MULTIVIT/MIN/PREN/FOL AC/IRON TABLET 1 TAB PO (07:12)
[2022-08-15] MEDS: IBUPROFEN 600 MG TABLET PO ×2 (07:13→16:04)
[2022-08-15] MEDS: HYDROcodone/acetaminophen (*CRX) 5-325 MG TABLET 1 TAB PO (07:13)
--- NOTE | 2022-08-15 07:29 | PM.OBPNVD ---
OB - PN: Subj Subjective Date/time seen: 08/15/22 07:29 Patient comments: no complaints and pain well controlled baby status: doing well OB - PN: Obj Data Labs 08/15/22 04:59 Labs: Laboratory Results - last 24 hr 08/15/22 04:59 WBC 9.7 RBC 3.53 L Hgb 9.8 L Hct 31.5 L MCV 89.2 MCH 27.8 MCHC 31.1 L RDW 13.7 Plt Count 188 MPV 10.1 Immature Gran % (Auto) 0.5 Neut % (Auto) 77.9 H Lymph % (Auto) 13.4 L [place] % (Auto) 6.5 Eos % (Auto) 1.4 Baso % (Auto) 0.3 Lymph # (Auto) 1.30 [place] # (Auto) 0.6 Eos # (Auto) 0.1 Baso # (Auto) 0.0 Abs Immat Gran (auto) 0.05 H Absolute Neuts (auto) 7.5 H Absolute Nucleated RBC 0.0 Nucleated RBC % 0.0 OB - PN A/P Plan day: 1 Plan: routine care Time Spent With Patient Time: Total time spent is greater than 50% in coordination of care (as documented) at patient's floor/unit and/or counseling patient: Exam Narrative: inc c/d/i : Bimanual exam- vagina & uterus: other (Uterus firm, nt @U)
[2022-08-15 08:14] VITALS: BP 110/63; PULSE 73; RESP 18; TEMP 36.9; O2SAT 100
--- NOTE | 2022-08-15 12:47 | PC.NURSE ---
[id number] Purposefully rounded to assess for needs. Mother is attempting to breastfeed infant to the right breast using a nipple shield. Mother is using a manual pump, feeds her infant human milk when possible, and supplements with formula to give baby energy . Mother states she has difficulty keeping her awake to feed. RN encouraged mother to change infants position, stimulating with massage touch, and burping to encourage wakefulness to feed. Mother has her plan of how she chooses to feed her infant based on her past history and declines any assistance or education at this time.
--- NOTE | 2022-08-15 13:09 | WPDANLDPN2 ---
Anes-Prog Note L&D Date/Time: 08/15/22 13:09 Comfortable throughout: section Neuraxial method: spinal Epidural/Spinal procedure site: clean & non-tender Neuro status: Neuro function grossly intact. Cardiovascular status: normal Respiratory status: normal Airway patency: baseline Mental status: baseline Post-Op hydration status: normal Vital Signs: Last Vital Signs Temp 36.9 C 08/15/22 08:14 Pulse 73 08/15/22 08:14 Resp 18 08/15/22 08:14 BP 110/63 08/15/22 08:14 Pulse Ox 100 08/15/22 08:14 O2 Del Method Room Air 08/15/22 00:10 Pain score (VAS): 3/10 I/O: Intake & Output 08/14/22 08/15/22 08/15/22 23:59 07:59 15:59 Intake Total 1500 120 Output Total 2100 Balance -600 120 Post-procedural complaints: none Patient feedback: Patient satisfied with anesthetic care.
--- NOTE | 2022-08-15 13:09 | WPDANLDNPN2 ---
Anes-Prog Note L&D-Neuraxial Date/Time: 08/15/22 13:09 Neuraxial medications: intrathecal PF morphine Opiod-related complaints: none Patient feedback: Patient satisfied with post-operative pain management.
[2022-08-15 16:00] VITALS: BP 107/69; PULSE 73; RESP 18; TEMP 36.9; O2SAT 98
[2022-08-15 19:40] VITALS: BP 121/63; PULSE 76; RESP 18; TEMP 36.4; O2SAT 100
[2022-08-16] MEDS: ACETAMINOPHEN 325 MG TABLET 650 MG PO (02:00)
--- NOTE | 2022-08-16 07:39 | PM.OBPNVD ---
OB - PN: Subj Subjective Date/time seen: 08/16/22 07:39 Patient comments: no complaints and pain well controlled baby status: doing well OB - PN: Obj Data Labs 08/15/22 04:59 OB - PN A/P Plan day: 2 Plan: routine care, discharge home and other (Plans POP) Time Spent With Patient Time: Total time spent is greater than 50% in coordination of care (as documented) at patient's floor/unit and/or counseling patient: Exam Narrative: inc c/d/i : Bimanual exam- vagina & uterus: other (Uterus firm, nt @U)
[2022-08-16 08:00] VITALS: PULSE 78; RESP 16; O2SAT 98
[2022-08-16] MEDS: MULTIVIT/MIN/PREN/FOL AC/IRON TABLET 1 TAB PO ×2 (09:00→09:34)
[2022-08-16 09:20] VITALS: BP 116/84; PULSE 78; RESP 16; TEMP 37.1; O2SAT 98
[2022-08-16] MEDS: HYDROcodone/acetaminophen (*CRX) 5-325 MG TABLET 1 TAB PO (09:34)
[2022-08-16] MEDS: POLYSACCHARIDE IRON COMPLEX 150 MG CAPSULE PO (09:34)
[2022-08-16] MEDS: DOCUSATE SODIUM 100 MG CAPSULE PO (09:34)
[2022-08-16] MEDS: IBUPROFEN 600 MG TABLET PO (09:35)
--- NOTE | 2022-08-16 13:52 | PC.NURSE ---
1030-Patient was given the opportunity to view the discharge video Mother & Baby Care, The First Two Weeks and to ask questions. Patient declined viewing the video and has been given the mother/baby guide for home reference.
[2022-08-18 09:10] VITALS: BP 122/71; PULSE 65; RESP 20; TEMP 36.8; O2SAT 100
== END 2022-08-16 12:17 | disposition home or self-care (01) | DRG 788 ==
LOC: ANHLDR 08:46 → ANHOB2 11:32
PROVIDERS: Admitting Provider Obstetrics & Gynecology Gynecology; PCP Family Medicine; Visit Provider Obstetrics & Gynecology Gynecology
PROC: 10D00Z1 Extraction of Products of Conception, Low, Open Approach (ICD-10-PCS; CPT 59514; principal; 2022-08-14 07:30)
DX: O34.219 Maternal care for unspecified type scar from previous cesarean delivery (principal); Z3A.39 39 weeks gestation of pregnancy; Z37.0 Single live birth
CPT/HCPCS: 36415; 85025; A9270; J0690; J1885; J2274; J2370; J2405; J2590; J7120